=== PATIENT | female | born 1995 | race Caucasian/White ===

== ENCOUNTER 2016-07-27 11:01 | Outpatient (CLI) | payer MEDICAID | END 2016-07-27 11:02 | disposition home or self-care (01) | LOC: HPCALD 11:01 | PROVIDERS: ATTEND Physician Assistant | DX: Z72.51 High risk heterosexual behavior (principal) | CPT/HCPCS: 87480; 87491; 87510; 87591; 87660 ==

== ENCOUNTER 2016-08-30 21:09 | Emergency (ER) | payer MEDICAID ==
[2016-08-30] MEDS ORDERED: Clindamycin 150 MG CAP ONE (21:49)
== END 2016-08-30 22:03 | disposition home or self-care (01) ==
LOC: BURERS 21:09
DX: L02.412 Cutaneous abscess of left axilla (principal); F41.9 Anxiety disorder, unspecified; F17.210 Nicotine dependence, cigarettes, uncomplicated
CPT/HCPCS: 10060

== ENCOUNTER 2016-10-09 13:52 | Outpatient (CLI) | payer MEDICAID, OTHER ==
[2016-10-09 18:04] LABS: HBCM Index 0.09 S/CO (0-0.79); HBSAg Index 0.26 S/CO (0-0.99); HIV (1/2) Antibody/Antigen Non-Reactive (NonReactive); HIV 1/2 INDEX 0.14 S/CO (<1.00); Hep A IgM AB Non-Reactive (NonReactive); Hep A IgM S/CO 0.18 S/CO (0-0.79); Hep B Surf Ag Non-Reactive S/CO (NonReactive); Hep C IgG Ab Non-Reactive (NonReactive); Hep C Index 0.11 S/CO (0-0.79); Hepatitis B Core IGM Abs Non-Reactive (NonReactive)
[2016-10-10 23:12] LABS: Chlamydia by PCR Not Detected (NotDetected); GC by PCR DETECTED (NotDetected)
== END 2016-10-09 13:53 | disposition home or self-care (01) ==
LOC: HPCALD 13:52
PROVIDERS: ATTEND Family Medicine
DX: Z12.4 Encounter for screening for malignant neoplasm of cervix (principal); Z11.3 Encounter for screening for infections with a predominantly sexual mode of transmission; Z86.19 Personal history of other infectious and parasitic diseases
CPT/HCPCS: 36415; 80074; 86592; 87389; 87480; 87491; 87510; 87591; 87660; 88142; G0123

== ENCOUNTER 2020-05-22 00:55 | Emergency (ER) | payer MEDICAID, SELFPAY ==
[2020-05-22] MEDS ORDERED: Ibuprofen 200 MG TAB ONE (01:24)
== END 2020-05-22 01:27 | disposition home or self-care (01) ==
LOC: BURERS 00:55
DX: S20.213A Contusion of bilateral front wall of thorax, initial encounter (principal); R10.816 Epigastric abdominal tenderness; F41.9 Anxiety disorder, unspecified; F32.9 Major depressive disorder, single episode, unspecified; F43.10 Post-traumatic stress disorder, unspecified; F17.210 Nicotine dependence, cigarettes, uncomplicated; Y04.0XXA Assault by unarmed brawl or fight, initial encounter
CPT/HCPCS: 99283

== ENCOUNTER 2020-09-16 17:18 | Emergency (ER) | payer SELFPAY | END 2020-09-16 17:47 | disposition home or self-care (01) | LOC: BURERS 17:18 | DX: R21 Rash and other nonspecific skin eruption (principal); F42.4 Excoriation (skin-picking) disorder; Z87.891 Personal history of nicotine dependence | CPT/HCPCS: 99281 ==

== ENCOUNTER 2020-10-09 16:15 | Emergency (ER) | payer SELFPAY ==
[2020-10-09] MEDS ORDERED: Boostrix 0.5 ML (Tdap) VIAL ONE (16:38)
[2020-10-09] MEDS ORDERED: Lidocaine 1% PF 5 ML VIAL ONE (16:57)
[2020-10-09] MEDS ORDERED: Bacitracin 1 PK ONE (17:28)
== END 2020-10-09 17:47 | disposition home or self-care (01) ==
LOC: BURERS 16:15
DX: S61.411A Laceration without foreign body of right hand, initial encounter (principal); Z23 Encounter for immunization; F17.210 Nicotine dependence, cigarettes, uncomplicated; W22.8XXA Striking against or struck by other objects, initial encounter
CPT/HCPCS: 12004; 90471; 90715

== ENCOUNTER 2021-12-23 09:18 | Emergency (ER) | payer SELFPAY | END 2021-12-23 09:46 | disposition left against medical advice (07) | LOC: BURERS 09:18 | DX: Z53.21 Procedure and treatment not carried out due to patient leaving prior to being seen by health care provider (principal) ==

== ENCOUNTER 2021-12-23 10:12 | Emergency (ER) | payer SELFPAY ==
[2021-12-23 11:21] LABS: #Basophils 0.1 thou/uL (0.0-0.2); #Eosinphils 0.2 thou/uL (0.0-0.7); #Monocytes 0.7 thou/uL (0.11-0.59); #Neutrophils 4.1 thou/uL (1.40-6.50); %Basophils 1.3 % (0.0-1.0); %Eosinophils 3.1 % (0.0-10.0); %Lymphocytes 17.2 % (21.0-51.0); %Monocytes 10.8 % (0.0-10.0); %Neutrophils 67.6 % (42.0-75.0); Hemoglobin 12.7 g/dL (12.0-16.0); Mean Corpuscular HGB CONC 32.6 g/dL (32.0-36.0); Mean Corpuscular Hemoglobin 29.1 pg (27.0-31.0); Mean Corpuscular Volume 89.1 fL (78.0-98.0); Mean Platelet Volume 5.1 fL (7.4-10.4); Platelet Count 298 thou/uL (130-400); RBC Distribution Width 11.7 % (11.5-14.5); Red Blood Cell (RBC) Count 4.35 mill/uL (4.20-5.40)
[2021-12-23] MEDS ORDERED: Lidocaine 1% PF 5 ML VIAL ONE (11:21)
[2021-12-23] MEDS ORDERED: Clindamycin/D5W 600 mg/50 ml Premix Bag ONE (11:21)
[2021-12-23 11:36] LABS: ALT (SGPT) 17 U/L (8-55); AST (SGOT) 16 U/L (5-34); Albumin 4.2 g/dL (3.5-5.0); Alkaline Phosphatase 75 U/L (40-110); Anion Gap 14 mmol/L (10-20); BUN (Urea Nitrogen) 17 mg/dL (7.0-18.7); Bilirubin, Total 0.3 mg/dL (0.2-1.2); Calc. Creatinine Clearance 0 mL/min (70-130); Calcium 9.4 mg/dL (7.8-10.44); Carbon Dioxide 28 mmol/L (22-29); Chloride 105 mmol/L (98-107); Globulin 3.6 g/dL (2.4-3.5); Glucose 61 mg/dL (70-105); Potassium 3.3 mmol/L (3.5-5.1); Protein, Total 7.8 g/dL (6.0-8.3); Sodium 144 mmol/L (136-145)
[2021-12-23 11:40] LABS: Bilirubin Negative (Negative); Blood, Urine Negative (Negative); Clarity Cloudy (Clear); Glucose, Urine (Dipstick) Negative (Negative); Ketone, Urine Negative (Negative); Leukocyte Trace (Negative); Nitrite Positive (Negative); Protein, Urine (Dipstick) Negative (Neg-Trace); Specific Gravity, Urine 1.025 (1.005-1.030); Urobilinogen 0.2 mg/dL (Less than 2)
[2021-12-23 11:49] LABS: Amphetamine Not Detected (NotDetected); Barbiturates Screen Not Detected (NotDetected); Benzodiazepine Screen Not Detected (NotDetected); Cocaine Metabolite Screen Not Detected (NotDetected); Medtox Control Line Valid? VALID (VALID); Methadone Not Detected (NotDetected); Methamphetamine Detected (NotDetected); Opiate Screen Not Detected (NotDetected); Oxycodone Screen Not Detected (NotDetected); Phencyclidine (PCP) Not Detected (NotDetected); THC/Cannabinoid Screen Detected (NotDetected); Tricyclic Screen Not Detected (NotDetected)
[2021-12-23 11:56] LABS: Bacteria/HPF 3+ HPF (None Seen); RBC/HPF 0-3 HPF (0-3); Squamous Epithelial 0-3 HPF (0-3)
[2021-12-23 12:02] LABS: Acetaminophen Less than 10.0 mcg/mL (10.0-30.0); Alcohol Less than 10 mg/dL (Less than 10); Salicylate Less than 8.0 mg/dL (15.0-30.0)
== END 2021-12-23 13:20 | disposition home or self-care (01) ==
LOC: BURERS 10:12
DX: L03.115 Cellulitis of right lower limb (principal); F15.10 Other stimulant abuse, uncomplicated; N39.0 Urinary tract infection, site not specified
CPT/HCPCS: 10060; 80053; 80306; 80307; 81003; 81015; 83605; 85025; 87040; 87070; 87077; 87086; 87186; 87205; 96365; J3490

== ENCOUNTER 2025-06-26 07:52 | Emergency (ER) | payer OTHER, SELFPAY ==
[2025-06-26 08:49] LABS: #Basophils 0.0 thou/uL (0.0-0.2); #Eosinophils 0.6 thou/uL (0.0-0.7); #Lymphocytes 1.1 thou/uL (1.20-3.40); #Monocytes 0.7 thou/uL (0.11-0.59); #Neutrophils 5.5 thou/uL (1.40-6.50); %Basophils 0.6 % (0.0-1.0); %Eosinophils 7.4 % (0.0-10.0); %Lymphocytes 13.9 % (21.0-51.0); %Monocytes 9.0 % (0.0-10.0); %Neutrophils 69.1 % (42.0-75.0); Hematocrit 34.1 % (36.0-47.0); Hemoglobin 10.7 g/dL (12.0-16.0); Mean Corpuscular Hemoglobin 26.7 pg (27.0-31.0); Mean Corpuscular Volume 84.8 fl (78.0-98.0); Platelet Count 316 10x3/uL (130-400); Red Blood Cell (RBC) Count 4.02 mill/uL (4.20-5.40); White Blood Cell (WBC) Count 7.9 10x3/uL (4.8-10.8)
[2025-06-26 09:08] LABS: Glucose, Urine (Dipstick) Negative (Negative); Leukocyte Negative (Negative); Protein, Urine (Dipstick) Negative (Neg-Trace); Specific Gravity, Urine 1.020 (1.005-1.030)
[2025-06-26 09:10] LABS: ALT (SGPT) 10 U/L (Less than 34); AST (SGOT) 17 U/L (11-34); Albumin 2.7 g/dL (3.1-4.5); Alkaline Phosphatase 95 U/L (40-110); Anion Gap 15 mmol/L (10-20); BUN (Urea Nitrogen) 4 mg/dL (7.0-18.7); Bilirubin, Total 0.2 mg/dL (0.3-1.2); Calc. Creatinine Clearance 0 mL/min (70-130); Calcium 8.1 mg/dL (7.8-10.44); Carbon Dioxide 19 mmol/L (22-29); Chloride 109 mmol/L (98-107); Globulin 3.3 g/dL (2.4-3.5); Glucose 96 mg/dL (70-105); Potassium 3.9 mmol/L (3.5-5.1); Sodium 139 mmol/L (136-145)
[2025-06-26 09:13] LABS: Troponin I 0.017 ng/mL (< 0.028)
[2025-06-26 09:16] LABS: Bacteria/HPF Rare-Few HPF (None Seen); CAUTI Indications for Culture Acute Hematuria; RBC/HPF 0-3 HPF (0-3); WBC/HPF 0-3 HPF (0-3)
[2025-06-26 09:17] LABS: Urine Culture Reflex No No
== END 2025-06-26 10:25 | disposition home or self-care (01) ==
LOC: BURERS 07:52
DX: O99.891 Other specified diseases and conditions complicating pregnancy (principal); R07.2 Precordial pain; Z3A.36 36 weeks gestation of pregnancy
CPT/HCPCS: 36415; 71275; 80053; 81001; 84484; 85025; 85379